=== PATIENT | male | born 1980 | race Caucasian/White ===

== ENCOUNTER 2017-08-24 21:27 | Emergency (ER) | payer SELFPAY ==
[2017-08-24] MEDS ORDERED: HYDROMORPHONE HCL INJ/PF 2 MG/ML AMPULE IM ONE (22:48)
[2017-08-24] MEDS ORDERED: SILVER SULFADIAZINE 1% CREAM 50 GM TP ONE (22:49)
[2017-08-24] MEDS ORDERED: HYDROMORPHONE HCL INJ/PF 2 MG/ML AMPULE ONE (22:51)
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
[2017-08-24] MEDS ORDERED: HYDROCODONE/ACETAMINOPHEN 5-325 MG 6 TAB/DSPK PO PRN (23:05)
[2017-08-24] MEDS ORDERED: SILVER SULFADIAZINE 1% CREAM 25 GM TP ONE (23:05)
[2017-08-24 23:23] VITALS: BP 107/67
== END 2017-08-24 23:26 | disposition home or self-care (01) ==
LOC: ER 21:27
DX: T23.261A Burn of second degree of back of right hand, initial encounter (principal); X10.2XXA Contact with fats and cooking oils, initial encounter; F17.200 Nicotine dependence, unspecified, uncomplicated
CPT/HCPCS: 99283; 96372; J1170; J3490

== ENCOUNTER 2017-12-05 20:42 | Emergency (ER) | payer SELFPAY ==
[2017-12-05 20:50] VITALS: BP 107/73
--- NOTE | 2017-12-05 22:49 | ER Document Report ---
HPI - HPI Patient complains to provider of: Back pain Pain Level: 4 Context: Patient is a 37-year-old male who presents emergency department complaining of left paralumbar pain with associated sciatica for the past 2 days. 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 He denies any specific injury. States that it started as a ache that is gotten more severe over the past day. Patient states he is taken Motrin and Lidoderm with improvement in his pain but it has not gone away. He denies any urinary/stool incontinence, saddle anesthesia. Denies any fevers or chills, neck stiffness. Patient does have a history of seizures, denies any recent seizure history. He has been compliant with his Depakote - CONSTITUTIONAL Constitutional: DENIES: Fever, Chills - EENT EENT: DENIES: Sore Throat, Ear Pain, Eye problems - NEURO Neurology: DENIES: Headache - CARDIOVASCULAR Cardiovascular: DENIES: Chest pain - RESPIRATORY Respiratory: DENIES: Trouble Breathing, Coughing - GASTROINTESTINAL Gastrointestinal: DENIES: Abdominal Pain, Black / Bloody Stools - URINARY Urinary: DENIES: Dysuria, Urgency, Frequency - MUSCULOSKELETAL Musculoskeletal: REPORTS: Extremity pain - l leg Past Medical History - Social History Smoking Status: Current Every Day Smoker Chew tobacco use (# tins/day): No Frequency of alcohol use: None Drug Abuse: None Family History: Arthritis, CAD, COPD, CVA, DM, Hyperlipidemia, Hypertension, Malignancy Patient has suicidal ideation: No Patient has homicidal ideation: No Neurological Medical History: Reports: Hx Seizures Renal/ Medical History: Reports: Hx Kidney Stones. Denies: Hx Peritoneal Dialysis Musculoskeltal Medical History: Reports Hx Arthritis Skin Medical History: Reports Hx MRSA Psychiatric Medical History: Denies: Hx Depression Past Surgical History: Reports: Hx Genitourinary Surgery - Vasectomy, Hx Orthopedic Surgery - Immunizations Hx Diphtheria, Pertussis, Tetanus Vaccination: Yes Vertical Provider Document - CONSTITUTIONAL Agree With Documented VS: Yes Notes: PHYSICAL EXAM GENERAL: Alert, interacts well. EXTREMITIES: Moves all 4 extremities spontaneously. No edema, radial and dorsalis pedis pulses 2/4 bilaterally. No cyanosis. Back: Left paralumbar muscle firmness and pain reproducible palpation. Negative Babinski sign, gait is stable and able to ambulate without assistance. Negative CVA. NEUROLOGICAL: Alert and oriented x4. Normal speech. PSYCH: Normal affect, normal mood. SKIN: Warm, dry, normal turgor. No rashes or lesions noted. - INFECTION CONTROL TRAVEL OUTSIDE OF THE [place] IN LAST 30 DAYS: No - RESPIRATORY O2 Sat by Pulse Oximetry: 97 Course - Re-evaluation Re-evalutation: 12/06/17 00:00 Patient is a 37-year-old male is hemodynamic stable, no acute distress and afebrile the patient presents with low back pain without signs of spinal cord compression, cauda equina syndrome, infection, aneurysm, or other serious etiology. The patient is neurologically intact. Given the extremely low risk of these diagnoses further testing and evaluation for these possibilities does not appear to be indicated at this time. The patient has been instructed to return if the symptoms worsen or change in any way. - Vital Signs Vital signs: Temp Pulse Resp BP Pulse Ox 98.4 F 73 18 107/73 97 12/05/17 20:49 12/05/17 20:49 12/05/17 20:49 12/05/17 20:49 12/05/17 20:49 Discharge - Discharge Clinical Impression: Back pain Qualifiers: Back pain location: low back pain Chronicity: acute Back pain laterality: left Sciatica presence: with sciatica Sciatica laterality: sciatica of left side Qualified Code(s): M54.42 - Lumbago with sciatica, left side Condition: Good Disposition: HOME, SELF-CARE Additional Instructions: LOW BACK PAIN: Three out of every four people will have an episode of disabling back pain during their lifetime. Most commonly the pain is due to straining of the muscles and ligaments in the low back. Usual treatment includes: (1) Rest on a firm surface. Avoid lying on your stomach. (2) Ice pack the painful area. After a few days, gentle heat may be used intermittently to relax the area, or ice packs can be continued. (3) Medication may be needed -- muscle relaxers and antiinflammatory medicines are commonly used. (4) As the back improves, exercises are prescribed to strengthen the back and abdominal muscles. Your doctor will advise you on the proper care for your back at each stage in your recovery. You may be better in a few days -- or healing may take several weeks. If new symptoms of a "herniated disc" (radiation of pain, numbness, or tingling down the back of the leg or weakness in the leg) occur, you should be re-examined. Further testing may be necessary. PAIN MEDICATION INJECTION: You have received an injection of a pain medication. You should experience significant pain relief within 45 minutes. If this injection was a narcotic -- it will impair your judgement, slow your reaction time and make you sleepy (as well as relieve your pain). Narcotics also can cause nausea. You should not drive, work with machinery, or perform any task requiring mental alertness until all effects of the medication are gone -- six to eight hours. Do not take any alcohol, or sedatives, and do not take any other medication without checking with your physician. MUSCLE RELAXERS: Muscle relaxing medications are usually prescribed for acute muscle spasm or injury to the neck and back. They are often combined with antiinflammatory pain medication for increased relief. You may stop the muscle relaxer when the pain and stiffness have improved. Start the medication again if spasms recur. Muscle relaxers may cause drowsiness, especially with the first dose. Do not operate machinery or drive while under the effects of the medication. Most muscle relaxers last up to 24 hours. Do not combine the medication with alcohol. ICE PACKS: Apply ice packs frequently against the painful area. Many different schedules are recommended, such as "20 minutes on, 20 minutes off" or "one hour ice, two hours rest." If you need to work, you may need to go longer between ice treatments. You should plan to have the area ice packed AT LEAST one fourth of the time. The ice should be applied over the wrap, tape, or splint, or over a layer of cloth -- not directly against the skin. Some ice bags have a built-in cloth and can be put directly on the skin. WARM PACKS: After approximately two days, apply gentle heat (such as a heating pad or hot water bottle) for about 20 to 30 minutes about every two hours -- at least four times daily. Warmth and elevation will help you make a more rapid recovery , and will ease the pain considerably. Do not use HOT heat, and never apply heat for longer than 30 minutes. The continuous heat can invisibly damage skin and muscles -- even when no burn is seen on the surface. Damaged muscles can make you MORE sore. FOLLOW-UP CARE: If you have been referred to a physician for follow-up care, call the physician s office for an appointment as you were instructed or within the next two days. If you experience worsening or a significant change in your symptoms, notify the physician immediately or return to the Emergency Department at any time for re-evaluation. Prescriptions: Cyclobenzaprine HCl [Flexeril 10 mg Tablet] 10 mg PO TIDP PRN #15 tab PRN Reason: Naproxen 375 mg PO BID #20 tablet Referrals: SILVIO CHISHOLM MD [[facility]] - Follow up in 1 week
[2017-12-05] MEDS ORDERED: KETOROLAC TROMETHAMINE INJ/PF 30 MG/1 ML SDV IM ONE (23:59)
[2017-12-05] MEDS ORDERED: CYCLOBENZAPRINE HCL 10 MG TABLET PO ONE (23:59)
== END 2017-12-06 00:24 | disposition home or self-care (01) ==
LOC: ER 20:42
DX: M54.42 Lumbago with sciatica, left side (principal); F17.200 Nicotine dependence, unspecified, uncomplicated
CPT/HCPCS: 99283; 96372; J1885

== ENCOUNTER 2018-06-05 10:24 | Emergency (ER) | payer SELFPAY ==
[2018-06-05 10:30] VITALS: BP 115/97
[2018-06-05] MEDS ORDERED: OXYCODONE-ACETAMINOPHEN 5-325 MG TABLET PO ONE (10:44)
[2018-06-05] MEDS ORDERED: IBUPROFEN 800 MG TABLET PO ONE (10:44)
--- NOTE | 2018-06-05 11:12 | ER Document Report ---
HPI - HPI Patient complains to provider of: Back pain Onset: Other - Years, worse since yesterday Onset/Duration: Worse Quality of pain: Sharp Pain Level: 5 Context: Patient presents complaining of a flareup of his chronic back pain. Patient states that he felt a pop in his back yesterday. Patient denies any new injury. Patient denies any fever. Patient denies any history of IV drug use. Patient does state the pain radiates into the left lower extremity down to the lower thigh area. Associated Symptoms: Other - Low back pain. denies: Headache Exacerbated by: Movement Relieved by: Denies Similar symptoms previously: Yes Recently seen / treated by doctor: No - ROS ROS below otherwise negative: Yes Systems Reviewed and Negative: Yes All other systems reviewed and negative - CONSTITUTIONAL Constitutional: DENIES: Fever, Chills - NEURO Neurology: DENIES: Headache, Weakness - GASTROINTESTINAL Gastrointestinal: DENIES: Nausea, Patient vomiting - URINARY Urinary: DENIES: Dysuria, Urgency, Frequency - MUSCULOSKELETAL Musculoskeletal: REPORTS: Back Pain - DERM Skin Color: Normal Skin Problems: None Past Medical History - General Information source: Patient - Social History Smoking Status: Current Every Day Smoker Chew tobacco use (# tins/day): No Smoking Education Provided: Yes Frequency of alcohol use: Rare Drug Abuse: Marijuana Occupation: Foodservice Family History: Arthritis, CAD, COPD, CVA, DM, Hyperlipidemia, Hypertension, Malignancy Patient has suicidal ideation: No Patient has homicidal ideation: No Neurological Medical History: Reports: Hx Seizures Renal/ Medical History: Reports: Hx Kidney Stones. Denies: Hx Peritoneal Dialysis Musculoskeletal Medical History: Reports Hx Arthritis, Reports Other - Back pain Skin Medical History: Reports Hx MRSA Psychiatric Medical History: Denies: Hx Depression Past Surgical History: Reports: Hx Genitourinary Surgery - Vasectomy, Hx Orthopedic Surgery - Immunizations Hx Diphtheria, Pertussis, Tetanus Vaccination: Yes Vertical Provider Document - CONSTITUTIONAL Agree With Documented VS: Yes Exam Limitations: No Limitations General Appearance: WD/WN, No Apparent Distress Notes: PHYSICAL EXAMINATION: GENERAL: Well-appearing, well-nourished and in no acute distress. HEAD: Atraumatic, normocephalic. EYES: sclera clear, anicteric, conjunctiva are normal. ENT: nares patent, Moist mucous membranes. NECK: Normal range of motion, supple no lymphadenopathy LUNGS: respirations unlabored HEART: Regular rate and rhythm without murmurs EXTREMITIES: Normal range of motion, no pitting or edema. No cyanosis. Gait normal, pt ambulates without difficulty BACK: lumbar midline tenderness, no deformities or step-offs. No CVA tenderness. NEUROLOGICAL: Cranial nerves grossly intact. Normal speech, normal gait. Patient with decreased sensation to left buttock and left lower leg. Normal rectal tone. 1+ Achilles and patellar reflexes bilaterally PSYCH: Normal mood, normal affect. SKIN: Warm, Dry, normal turgor, no rashes or lesions noted. - INFECTION CONTROL TRAVEL OUTSIDE OF THE [place] IN LAST 30 DAYS: No Course - Re-evaluation Re-evalutation: 06/05/18 11:12 Cat RN as standby during rectal examination 06/05/18 11:[address] Aceves regarding patient presentation and physical exam findings. Agrees with discharge plan of care at this time. The patient presents with low back pain without signs of spinal cord compression, cauda equina syndrome, infection, aneurysm, or other serious etiology. The patient is neurologically intact. Given the extremely risk of these diagnoses further testing and evaluation for these possibilities does not appear to be indicated at this time. Patient has been instructed to return if the symptoms worsen or change in any way. - Vital Signs Vital signs: Temp Pulse Resp BP Pulse Ox 98.4 F 100 18 115/97 H 97 06/05/18 10:29 06/05/18 10:29 06/05/18 10:29 06/05/18 10:29 06/05/18 10:29 - Diagnostic Test Radiology reviewed: Reports reviewed Discharge - Discharge Clinical Impression: Low back pain Qualifiers: Chronicity: unspecified Back pain laterality: left Sciatica presence: with sciatica Sciatica laterality: sciatica of left side Qualified Code(s): M54.42 - Lumbago with sciatica, left side Condition: Stable Disposition: HOME, SELF-CARE Instructions: Ice Packs ([facility]), Low Back Pain ([facility]), Muscle Relaxers ([facility]), Oral Narcotic Medication ([facility]), Sciatica ([facility]) Additional Instructions: Return immediately for any new or worsening symptoms Followup with your primary care provider, call tomorrow to make a followup appointment Prescriptions: Cyclobenzaprine HCl [Flexeril 10 Mg Tablet] 10 mg PO TID #15 tablet Oxycodone HCl/Acetaminophen [Percocet 5-325 mg Tablet] 1 tab PO ASDIR PRN #15 tablet PRN Reason: Forms: Smoking Cessation Education, Return to Work Referrals: [facility] [Provider Group] - Follow up as needed
--- NOTE | 2018-06-05 11:14 | RADIOLOGY REPORT (SQ) ---
EXAM DESCRIPTION: L SPINE WHOLE COMPLETED DATE/TIME: 06/05/2018 11:05 am REASON FOR STUDY: back pain COMPARISON: None. NUMBER OF VIEWS: Five views including obliques. TECHNIQUE: AP, lateral, oblique, and sacral radiographic images acquired of the lumbar spine. LIMITATIONS: None. FINDINGS: MINERALIZATION: Normal. SEGMENTATION: Normal. No transitional anatomy. ALIGNMENT: Normal. VERTEBRAE: Maintained height. No fracture or worrisome bone lesion. DISCS: Preserved height. No significant osteophytes or end plate irregularity. POSTERIOR ELEMENTS: Pedicles and facets are intact. No pars defect or posterior arch defects. HARDWARE: None in the spine. PARASPINAL SOFT TISSUES: Normal. PELVIS: Intact as visualized. No fractures or worrisome bone lesions. SI joints intact. OTHER: No other significant finding. IMPRESSION: NORMAL 5 VIEW LUMBAR SPINE. TECHNICAL DOCUMENTATION: JOB ID: [id number] [employer]- All Rights Reserved Reading location - IP/workstation name: [email or web address]
== END 2018-06-05 11:43 | disposition home or self-care (01) ==
LOC: ER 10:24
DX: M54.42 Lumbago with sciatica, left side (principal); G89.29 Other chronic pain; F17.200 Nicotine dependence, unspecified, uncomplicated; M19.90 Unspecified osteoarthritis, unspecified site; Z86.14 Personal history of Methicillin resistant Staphylococcus aureus infection
CPT/HCPCS: 72110; 99283

== ENCOUNTER 2018-11-07 23:25 | Emergency (ER) | payer SELFPAY ==
[2018-11-08 00:56] LABS: ABSOLUTE BASOPHILS # (AUTO) 0.1 10^3/uL (0.0-0.2); ABSOLUTE EOSINOPHILS # (AUTO) 0.1 10^3/uL (0.0-0.6); ABSOLUTE LYMPHOCYTES (AUTO) 3.8 10^3/uL (0.5-4.7); ABSOLUTE MONOCYTES (AUTO) 1.3 10^3/uL (0.1-1.4); ABSOLUTE NEUT (AUTO) 7.3 10^3/uL (1.7-8.2); BASOPHILS % (AUTO) 0.9 % (0-2); EOSINOPHILS % (AUTO) 1.1 % (0-6); HEMATOCRIT 42.2 % (37.9-51.0); HEMOGLOBIN 14.6 g/dL (13.5-17.0); LYMPHOCYTES % (AUTO) 29.9 % (13-45); MEAN CORPUSCULAR HEMOGLOBIN 31.7 pg (27.0-33.4); MEAN CORPUSCULAR HGB CONC 34.7 g/dL (32.0-36.0); MEAN CORPUSCULAR VOLUME 92 fl (80-97); MONOCYTES % (AUTO) 10.2 % (3-13); PLATELET COUNT 291 10^3/uL (150-450); RED BLOOD COUNT 4.61 10^6/uL (4.35-5.55); SEGMENTED NEUTROPHILS % (AUTO) 57.9 % (42-78); TOTAL CELLS COUNTED % (AUTO) 100 %; WHITE BLOOD COUNT 12.6 10^3/uL (4.0-10.5)
[2018-11-08 00:58] LABS: APPEARANCE,URINE CLEAR; BILIRUBIN,URINE NEGATIVE (NEGATIVE); COLOR,URINE STRAW; GLUCOSE, URINE NEGATIVE (NEGATIVE); KETONES,URINE NEGATIVE (NEGATIVE); LEUKOCYTE ESTERASE,URINE NEGATIVE (NEGATIVE); NITRITE,URINE NEGATIVE (NEGATIVE); PROTEIN,URINE NEGATIVE (NEGATIVE); URINE SPECIFIC GRAVITY 1.004; UROBILINOGEN,URINE NEGATIVE mg/dL (<2.0)
[2018-11-08 01:15] LABS: ALANINE AMINOTRANSFERASE 16 U/L (21-72); ALBUMIN 4.3 g/dL (3.5-5.0); ALKALINE PHOSPHATASE 41 U/L (38-126); ANION GAP 12 (5-19); ASPARTATE AMINO TRANSFERASE 17 U/L (17-59); BILIRUBIN,DIRECT 0.3 mg/dL (0.0-0.4); BILIRUBIN,TOTAL 0.4 mg/dL (0.2-1.3); BLOOD UREA NITROGEN 16 mg/dL (7-20); CALCIUM 10.2 mg/dL (8.4-10.2); CARBON DIOXIDE 26 mmol/L (22-30); CHLORIDE 105 mmol/L (98-107); GLUCOSE 91 mg/dL (75-110); LIPASE 71.4 U/L (23-300); POTASSIUM 4.1 mmol/L (3.6-5.0); SODIUM 142.5 mmol/L (137-145); TOTAL PROTEIN 7.5 g/dL (6.3-8.2)
[2018-11-08] MEDS ORDERED: MORPHINE SULFATE 10 MG/ML INJ IV PRN (01:21)
[2018-11-08] MEDS ORDERED: NORMAL SALINE 1000 ML 1,000 ML IV ONE (01:21)
[2018-11-08] MEDS ORDERED: KETOROLAC TROMETHAMINE INJ/PF 30 MG/1 ML SDV IV ONE ×2 (01:21→02:50)
--- NOTE | 2018-11-08 01:22 | ER Document Report ---
ED General - General Chief Complaint: Abdominal Pain Stated Complaint: ABDOMINAL PAIN Time Seen by Provider: 11/08/18 00:23 Notes: Patient is a 38-year-old male without chronic medical problems who presents with 2 days of progressively worsening lower abdominal pain. The patient reports that the pain started in the periumbilical region and has migrated to his right lower quadrant. States that the pain is a dull, throbbing, constant pain. Nothing seems to improve or worsen the pain. No history of similar symptoms in the past. He has associated nausea but no vomiting. No fever or constitutional symptoms. He has not seen his general physician regarding today' s concerns. Denies any testicular or penile pain. TRAVEL OUTSIDE OF THE [place] IN LAST 30 DAYS: No - Related Data Allergies/Adverse Reactions: No Known Allergies Allergy (Verified 06/05/18 10:30) Past Medical History - General Information source: Patient - Social History Smoking Status: Current Every Day Smoker Frequency of alcohol use: None Drug Abuse: None Lives with: Spouse/Significant other Family History: Arthritis, CAD, COPD, CVA, DM, Hyperlipidemia, Hypertension, Malignancy Neurological Medical History: Reports: Hx Seizures Renal/ Medical History: Reports: Hx Kidney Stones. Denies: Hx Peritoneal Dialysis Musculoskeletal Medical History: Reports Hx Arthritis Skin Medical History: Reports Hx MRSA Psychiatric Medical History: Denies: Hx Depression Past Surgical History: Reports: Hx Genitourinary Surgery - Vasectomy, Hx Orthopedic Surgery - Immunizations Hx Diphtheria, Pertussis, Tetanus Vaccination: Yes Review of Systems - Review of Systems Notes: Constitutional: Negative for fever. HENT: Negative for sore throat. Eyes: Negative for visual changes. Cardiovascular: Negative for chest pain. Respiratory: Negative for shortness of breath. Gastrointestinal: Positive for lower abdominal pain and nausea Genitourinary: Negative for dysuria. Musculoskeletal: Negative for back pain. Skin: Negative for rash. Neurological: Negative for headaches, weakness or numbness. 10 point ROS negative except as marked above and in HPI. Physical Exam - Vital signs Vitals: Temp Pulse Resp BP Pulse Ox 98.5 F 79 16 111/59 L 97 11/08/18 00:17 11/08/18 00:17 11/08/18 00:17 11/08/18 00:17 11/08/18 00:17 Interpretation: Normal Notes: PHYSICAL EXAMINATION: GENERAL: Appears to be in moderate discomfort but no acute distress HEAD: Atraumatic, normocephalic. EYES: Pupils equal round and reactive to light, extraocular movements intact, sclera anicteric, conjunctiva are normal. ENT: nares patent, oropharynx clear without exudates. Moist mucous membranes. NECK: Normal range of motion, supple without lymphadenopathy LUNGS: Breath sounds clear to auscultation bilaterally and equal. No wheezes rales or rhonchi. HEART: Regular rate and rhythm without murmurs ABDOMEN: Soft, significant focal tenderness to the right lower quadrant with associated guarding and rebound tenderness. : Positive cremasteric reflex bilaterally. No focal testicular discomfort or tenderness on palpation. EXTREMITIES: Normal range of motion, no pitting or edema. No cyanosis. NEUROLOGICAL: No focal neurological deficits. Moves all extremities spontaneously and on command. PSYCH: Normal mood, normal affect. SKIN: Warm, Dry, normal turgor, no rashes or lesions noted. Course - Re-evaluation Re-evalutation: 11/08/18 01:21 Patient presents with right lower quadrant abdominal pain that initially started in the umbilical region and has subsequently migrated to the right lower quadrant. He has had associated nausea and subjective fevers. On exam he has exquisite tenderness localized to the right lower quadrant with both guarding and rebound. Exam and history are extremely consistent with an acute appendicitis. Labs are notable for a leukocytosis. The exam unremarkable. Patient will go for CT scan of the abdomen pelvis to confirm the suspected diagnosis of acute appendicitis 11/08/18 02:15 CT does not identify an acute appendicitis although does appropriately visualize the appendix. On reexam the patient remains exquisitely tender to the right lower quadrant and appears to still be in significant pain. At this point given his exam and history I have contacted the on-call surgeon Dr. Richardson and requested him to to evaluate the patient. He states he will look at the CT scan and contact me. 11/08/18 02:48 Dr. Richardson has evaluated the patient, would like him to be observed in the emergency department for 6 additional hours and then the patient is to be reassessed by Dr. Forbes in the morning if he continues to have pain. Patient has been informed of this plan and does agree. I have reviewed care plan with Dr. Vicente who will monitor the patient and signed out to the a.m. physician. - Vital Signs Vital signs: Temp Pulse Resp BP Pulse Ox 98.5 F 79 16 111/59 L 97 11/08/18 00:17 11/08/18 00:17 11/08/18 00:17 11/08/18 00:17 11/08/18 00:17 - Laboratory Result Diagrams: 11/08/18 00:33 11/08/18 00:33 Laboratory results interpreted by me: 11/08/18 11/08/18 00:33 00:33 WBC 12.6 H ALT 16 L Discharge - Discharge Clinical Impression: Right lower quadrant abdominal pain
--- NOTE | 2018-11-08 02:07 | RADIOLOGY REPORT (SQ) ---
EXAM DESCRIPTION: CT ABDOMEN PELVIS WITH IV CONTRAST COMPLETED DATE/TME: 11/08/2018 01:20 CLINICAL HISTORY: 38 years, Male, rlq ab pain, eval appendicitis COMPARISON: None. TECHNIQUE: 373 Images stored on PACS. All CT scanners at this facility use dose modulation, iterative reconstruction, and/or weight based dosing when appropriate to reduce radiation dose to as low as reasonably achievable (ALARA). [facility]: Dose Right [facility]: CareDose [facility]: Dose Right [facility]: Teradose 4D [facility]: [employer] LIMITATIONS: None. FINDINGS: Limited evaluation of the lung bases is unremarkable. Osseous structures are grossly intact. The liver, spleen, adrenal glands, pancreas, kidneys are unremarkable. Normal appendix. No gross evidence for bowel obstruction. No free air. Urinary bladder is incompletely distended, limiting its evaluation. No free fluid. IMPRESSION: Negative for acute intra-abdominal/pelvic process TECHNICAL DOCUMENTATION: Quality ID # 436: Final reports with documentation of one or more dose reduction techniques (e.g., Automated exposure control, adjustment of the mA and/or kV according to patient size, use of iterative reconstruction technique) copyright 2011 [employer]- All Rights Reserved
--- NOTE | 2018-11-08 02:49 | PDOC CONSULTATION ---
Consultation Consult Date: 11/08/18 Attending physician:: MIHAI THORNTON Consult reason:: Abdominal pain abdominal pain History of Present Illness Patient complains of: Abdominal pain History of Present Illness: DEWIN OSWALD is a 38 year old male Presents emergency department via ground rescue complaining of a 2-1/2-day history of abdominal pain periumbilical that radiated to the right lower quadrant associated nausea no vomiting. Last bowel movement was earlier today, normal. He denies history of trauma previous episodes or contact with people who are sick. He was seen in the emergency department where he was found to have right lower quadrant tenderness and leukocytosis of 12,600. He had a CT scan of the abdomen and pelvis which was interpreted as normal. This was performed without oral contrast. Surgery was consulted. Patient states he is feeling a little better compared to when he first came in. Past Medical History Neurological Medical History: Reports: Seizures Musculoskeltal Medical History: Reports: Arthritis Psychiatric Medical History: Denies: Depression Past Surgical History Past Surgical History: Reports: Orthopedic Surgery Social History Information Source: Patient Smoking Status: Current Every Day Smoker Frequency of Alcohol Use: Rare Hx Recreational Drug Use: Yes - Marijuana Drugs: None Hx Prescription Drug Abuse: No Family History Family History: Arthritis, CAD, COPD, CVA, DM, Hyperlipidemia, Hypertension, Malignancy Parental Family History Reviewed: Yes Children Family History Reviewed: Yes Sibling(s) Family History Reviewed.: Yes Medication/Allergy Home Medications: Cyclobenzaprine HCl [Flexeril 10 Mg Tablet] 10 mg PO TID #15 tablet 06/05/18 Oxycodone HCl/Acetaminophen [Percocet 5-325 mg Tablet] 1 tab PO ASDIR PRN #15 tablet 06/05/18 Allergies/Adverse Reactions: No Known Allergies Allergy (Verified 06/05/18 10:30) Review of Systems Constitutional: PRESENT: as per HPI Eyes: ABSENT: visual disturbances Ears: ABSENT: hearing changes Cardiovascular: ABSENT: chest pain, dyspnea on exertion, edema, orthropnea, palpitations Respiratory: ABSENT: cough, hemoptysis Neurological: ABSENT: abnormal gait, abnormal speech, confusion, dizziness, focal weakness, syncope Psychiatric: ABSENT: anxiety, depression, homidical ideation, suicidal ideation Physical Exam Vital Signs: Temp Pulse Resp BP Pulse Ox 98.5 F 79 16 111/59 L 97 11/08/18 00:17 11/08/18 00:17 11/08/18 00:17 11/08/18 00:17 11/08/18 00:17 Intake & Output 11/06/18 11/07/18 11/08/18 06:59 06:59 06:59 Weight 69 kg General appearance: PRESENT: mild distress Head exam: PRESENT: normocephalic Eye exam: PRESENT: EOMI Teeth exam: PRESENT: other - Rotten teeth upper greater than lower Respiratory exam: PRESENT: rhonchi Cardiovascular exam: PRESENT: RRR Pulses: PRESENT: normal carotid pulses, normal radial pulses GI/Abdominal exam: PRESENT: other - Soft no distention no rigidity diffuse abdominal tenderness possibly more so on the right lower quadrant Rectal exam: PRESENT: deferred Extremities exam: PRESENT: full ROM Musculoskeletal exam: PRESENT: full ROM Neurological exam: PRESENT: alert, awake, oriented to person, oriented to time, oriented to situation Psychiatric exam: PRESENT: agitated Results Laboratory Results: 11/08/18 00:33 11/08/18 00:33 11/08/18 11/08/18 11/08/18 00:33 00:33 00:33 WBC 12.6 H RBC 4.61 Hgb 14.6 Hct 42.2 MCV 92 MCH 31.7 MCHC 34.7 RDW 13.0 Plt Count 291 Seg Neutrophils % 57.9 Lymphocytes % 29.9 Monocytes % 10.2 Eosinophils % 1.1 Basophils % 0.9 Absolute Neutrophils 7.3 Absolute Lymphocytes 3.8 Absolute Monocytes 1.3 Absolute Eosinophils 0.1 Absolute Basophils 0.1 Sodium 142.5 Potassium 4.1 Chloride 105 Carbon Dioxide 26 Anion Gap 12 BUN 16 Creatinine 0.97 Est GFR ( Amer) > 60 Est GFR (Non-Af Amer) > 60 Glucose 91 Calcium 10.2 Total Bilirubin 0.4 AST 17 ALT 16 L Alkaline Phosphatase 41 Total Protein 7.5 Albumin 4.3 Lipase 71.4 Urine Color STRAW Urine Appearance CLEAR Urine pH 7.0 Ur Specific [place] 1.004 Urine Protein NEGATIVE Urine Glucose (UA) NEGATIVE Urine Ketones NEGATIVE Urine Blood NEGATIVE Urine Nitrite NEGATIVE Ur Leukocyte Esterase NEGATIVE Urine WBC (Auto) 0 Urine RBC (Auto) 1 Impressions: Abdomen/Pelvis CT 11/08/18 01:20 IMPRESSION: Negative for acute intra-abdominal/pelvic process Surgeon's addendum: This is a limited study due to absence of oral contrast. No free air or fluid mass-effect etc. I cannot visualize the appendix. TECHNICAL DOCUMENTATION: Quality ID # 436: Final reports with documentation of one or more dose reduction techniques (e.g., Automated exposure control, adjustment of the mA and/or kV according to patient size, use of iterative reconstruction technique) copyright 2011 [employer]- All Rights Reserved Assessment & Plan - Diagnosis (1) Abdominal pain Is this a current diagnosis for this admission?: Yes Plan: Impression: Abdominal pain 2-1/2 days, mild leukocytosis; right lower quadrant to periumbilical abdominal tenderness, unremarkable CT scan; history and physical exam findings currently not consistent with acute appendicitis, possibly appendicitis in evolution Recommendations: 1. Observation; repeat examination in 4-6 hours; if pain worsens, reconsult general surgery-Dr. Pagan community health consultant November 08 2. Would withhold pain medication please (2) Recreational drug use Is this a current diagnosis for this admission?: Yes (3) Cigarette smoker two packs a day or less Is this a current diagnosis for this admission?: Yes
[2018-11-08] MEDS ORDERED: LIDOCAINE 5% (700 MG) TRANSDERMAL ADH..PATCH TP ONE (02:50)
[2018-11-08] MEDS ORDERED: NICOTINE 21 MG/24 HR PATCH.TD24 TD ONE (03:00)
[2018-11-08] MEDS ORDERED: ONDANSETRON HCL INJ/PF 4 MG/2 ML SDV IV ONE (04:54)
[2018-11-08] MEDS ORDERED: PROMETHAZINE HCL INJ 25 MG/1 ML VIAL IV ONE (07:30)
--- NOTE | 2018-11-08 10:22 | ER Document Report ---
ED GI/ - General Chief Complaint: Abdominal Pain Stated Complaint: ABDOMINAL PAIN Time Seen by Provider: 11/08/18 00:23 Notes: 38-year-old male to the emergency department complaining of right lower quadrant pain. Symptoms began yesterday. Continues to get worse. Patient was seen earlier by previous provider. Had a CT scan which was negative. Had a surgical consult which was inconclusive. Patient continues to have worsening right lower quadrant pain. A second surgeon, Dr. Forbes was asked to come see patient. He has recommended a repeat CT scan with oral contrast. Patient states the pain is actually getting worse not better. TRAVEL OUTSIDE OF THE [place] IN LAST 30 DAYS: No - HPI Patient complains to provider of: Abdominal pain - Related Data Allergies/Adverse Reactions: No Known Allergies Allergy (Verified 06/05/18 10:30) Past Medical History - General Information source: Patient - Social History Smoking Status: Current Every Day Smoker Chew tobacco use (# tins/day): No Frequency of alcohol use: None Drug Abuse: None Lives with: Spouse/Significant other Family History: Arthritis, CAD, COPD, CVA, DM, Hyperlipidemia, Hypertension, Malignancy Patient has suicidal ideation: No Patient has homicidal ideation: No Neurological Medical History: Reports: Hx Seizures Renal/ Medical History: Reports: Hx Kidney Stones. Denies: Hx Peritoneal Dialysis Musculoskeletal Medical History: Reports Hx Arthritis Skin Medical History: Reports Hx MRSA Psychiatric Medical History: Denies: Hx Depression Past Surgical History: Reports: Hx Genitourinary Surgery - Vasectomy, Hx Orthopedic Surgery - Immunizations Hx Diphtheria, Pertussis, Tetanus Vaccination: Yes Physical Exam - Vital signs Vitals: Temp Pulse Resp BP Pulse Ox 98.5 F 79 16 111/59 L 97 11/08/18 00:17 11/08/18 00:17 11/08/18 00:17 11/08/18 00:17 11/08/18 00:17 Interpretation: Normal - General General appearance: Appears well, Alert - HEENT Head: Normocephalic, Atraumatic Eyes: Normal Pupils: PERRL - Respiratory Respiratory status: No respiratory distress Chest status: Nontender Breath sounds: Normal Chest palpation: Normal - Cardiovascular Rhythm: Regular Heart sounds: Normal auscultation Murmur: No - Abdominal Inspection: Normal Distension: No distension Bowel sounds: Normal Tenderness: Tender, McBurney's point, Guarding, Rebound Organomegaly: No organomegaly - Back Back: Normal, Nontender - Extremities General upper extremity: Normal inspection, Nontender, Normal color, Normal ROM , Normal temperature General lower extremity: Normal inspection, Nontender, Normal color, Normal ROM , Normal temperature, Normal weight bearing. No: Norberto's sign - Neurological Neuro grossly intact: Yes Cognition: Normal Orientation: AAOx4 [place] Coma Scale Eye Opening: Spontaneous [place] Coma Scale Verbal: Oriented [place] Coma Scale Motor: Obeys Commands [place] Coma Scale Total: 15 Speech: Normal Motor strength normal: LUE, RUE, LLE, RLE Sensory: Normal - Psychological Associated symptoms: Normal affect, Normal mood - Skin Skin Temperature: Warm Skin Moisture: Dry Skin Color: Normal Course - Re-evaluation Re-evalutation: 11/08/18 11:11 Patient has an elevated WBC count. Definitely has concerning signs for appendicitis. Will follow recommendations of Dr. Forbes and repeat the CT scan at this time. 11/08/18 15:29 Abdomen/Pelvis CT 11/08/18 09:47 IMPRESSION: NO SIGNIFICANT OR ACUTE ABDOMINAL PROCESS. Laboratory 11/08/18 11/08/18 11/08/18 00:33 00:33 00:33 WBC 12.6 H RBC 4.61 Hgb 14.6 Hct 42.2 MCV 92 MCH 31.7 MCHC 34.7 RDW 13.0 Plt Count 291 Seg Neutrophils % 57.9 Lymphocytes % 29.9 Monocytes % 10.2 Eosinophils % 1.1 Basophils % 0.9 Absolute Neutrophils 7.3 Absolute Lymphocytes 3.8 Absolute Monocytes 1.3 Absolute Eosinophils 0.1 Absolute Basophils 0.1 Sodium 142.5 Potassium 4.1 Chloride 105 Carbon Dioxide 26 Anion Gap 12 BUN 16 Creatinine 0.97 Est GFR ( Amer) > 60 Est GFR (Non-Af Amer) > 60 Glucose 91 Calcium 10.2 Total Bilirubin 0.4 Direct Bilirubin 0.3 Neonat Total Bilirubin Not Reportable Neonat Direct Bilirubin Not Reportable Neonat Indirect Bili Not Reportable AST 17 ALT 16 L Alkaline Phosphatase 41 Total Protein 7.5 Albumin 4.3 Lipase 71.4 Urine Color STRAW Urine Appearance CLEAR Urine pH 7.0 Ur Specific [place] 1.004 Urine Protein NEGATIVE Urine Glucose (UA) NEGATIVE Urine Ketones NEGATIVE Urine Blood NEGATIVE Urine Nitrite NEGATIVE Urine Bilirubin NEGATIVE Urine Urobilinogen NEGATIVE Ur Leukocyte Esterase NEGATIVE Urine WBC (Auto) 0 Urine RBC (Auto) 1 Urine Mucus (Auto) RARE Urine Ascorbic Acid NEGATIVE 11/08/18 14:35 WBC 10.1 RBC 4.12 L Hgb 13.2 L Hct 38.2 MCV 93 MCH 32.0 MCHC 34.5 RDW 13.2 Plt Count 237 Seg Neutrophils % 62.1 Lymphocytes % 25.8 Monocytes % 9.6 Eosinophils % 1.7 Basophils % 0.8 Absolute Neutrophils 6.2 Absolute Lymphocytes 2.6 Absolute Monocytes 1.0 Absolute Eosinophils 0.2 Absolute Basophils 0.1 Sodium Potassium Chloride Carbon Dioxide Anion Gap BUN Creatinine Est GFR ( Amer) Est GFR (Non-Af Amer) Glucose Calcium Total Bilirubin Direct Bilirubin Neonat Total Bilirubin Neonat Direct Bilirubin Neonat Indirect Bili AST ALT Alkaline Phosphatase Total Protein Albumin Lipase Urine Color Urine Appearance Urine pH Ur Specific [place] Urine Protein Urine Glucose (UA) Urine Ketones Urine Blood Urine Nitrite Urine Bilirubin Urine Urobilinogen Ur Leukocyte Esterase Urine WBC (Auto) Urine RBC (Auto) Urine Mucus (Auto) Urine Ascorbic Acid Patient has a repeat CT scan with oral contrast at request of general surgeon performed and this was negative. A repeat CBC was performed at the request of general surgeon and this is gone down not up. Patient is afebrile. Feeling much better at this time. Strict warning signs will be given with regards to worsening abdominal pain. Patient will be discharged at this time in stable condition. - Vital Signs Vital signs: Temp Pulse Resp BP Pulse Ox 97.6 F 61 15 119/69 100 11/08/18 05:03 11/08/18 05:03 11/08/18 05:03 11/08/18 05:03 11/08/18 05:03 - Laboratory Result Diagrams: 11/08/18 14:35 11/08/18 00:33 Laboratory results interpreted by me: 11/08/18 11/08/18 11/08/18 00:33 00:33 14:35 WBC 12.6 H RBC 4.12 L Hgb 13.2 L ALT 16 L Discharge - Discharge Clinical Impression: Right lower quadrant abdominal pain Condition: Good Disposition: HOME, SELF-CARE Instructions: Observation for Appendicitis ([facility]), Pain Medication Injection ( [facility]), Toradol Injection ([facility]) Additional Instructions: In the event that pain is getting worse, fever, uncontrolled vomiting or any other concerns please return for repeat evaluation. Follow-up with surgery if this persists. Prescriptions: Ketorolac Tromethamine [Toradol 10 mg Tablet] 10 mg PO Q8H PRN 7 Days #21 tablet PRN Reason: Promethazine HCl [Phenergan 25 mg Tablet] 1 tab PO Q8H PRN 5 Days #15 tablet PRN Reason: Referrals: IRENE KASPER MD [ACTIVE STAFF] - Follow up in 3-5 days
[2018-11-08] MEDS ORDERED: MORPHINE SULFATE 10 MG/ML INJ IV ONE (11:11)
--- NOTE | 2018-11-08 13:33 | RADIOLOGY REPORT (SQ) ---
EXAM DESCRIPTION: CT ABD/PELVIS ORAL ONLY COMPLETED DATE/TIME: 11/08/2018 1:21 pm REASON FOR STUDY: abd pain, RLQ COMPARISON: IV contrasted study from earlier on same date. TECHNIQUE: CT scan of the abdomen and pelvis performed with oral contrast and no intravenous contras t. Images reviewed with lung, soft tissue, and bone windows. Reconstructed coronal and sagittal MPR i mages reviewed. All images stored on PACS. All CT scanners at this facility use dose modulation, iterative reconstruction, and/or weight based d osing when appropriate to reduce radiation dose to as low as reasonably achievable (ALARA). [facility]: Dose Right [facility]: CareDose [facility]: Dose Right [facility]: Teradose 4D [facility]: [employer] RADIATION DOSE: CT Rad equipment meets quality standard of care and radiation dose reduction techniq ues were employed. CTDIvol: 4.8 mGy. DLP: 277 mGy-cm.mGy. LIMITATIONS: None. FINDINGS: LOWER CHEST: Minimal dependent changes in the lower lobes. NON-CONTRASTED LIVER, SPLEEN, ADRENALS: Evaluation limited by lack of IV contrast. No identified sign ificant masses. PANCREAS: No masses. No peripancreatic inflammatory changes. GALLBLADDER: Contrast from earlier CT study. RIGHT KIDNEY AND URETER: No solid masses. No significant calcification. No hydronephrosis or hydroure ter. LEFT KIDNEY AND URETER: No solid masses. No significant calcification. No hydronephrosis or hydrouret er. AORTA AND RETROPERITONEUM: No aneurysm. No retroperitoneal masses or adenopathy. BOWEL AND PERITONEAL CAVITY: No obvious masses or inflammatory changes. No free fluid. APPENDIX: As previously noted, normal. PELVIS, BLADDER, AND ABDOMINAL WALL: No abnormal pelvic masses. No abdominal wall hernias. Bladder un remarkable. BONES: No significant findings. OTHER: No other significant finding. IMPRESSION: NO SIGNIFICANT OR ACUTE ABDOMINAL PROCESS. TECHNICAL DOCUMENTATION: JOB ID: [id number] Quality ID # [id number]: Final reports with documentation of one or more dose reduction techniques (e.g., Au tomated exposure control, adjustment of the mA and/or kV according to patient size, use of iterative reconstruction technique) 2010 [employer]- All Rights Reserved Reading location - IP/workstation name: [email or web address]
[2018-11-08 14:59] LABS: ABSOLUTE BASOPHILS # (AUTO) 0.1 10^3/uL (0.0-0.2); ABSOLUTE EOSINOPHILS # (AUTO) 0.2 10^3/uL (0.0-0.6); ABSOLUTE LYMPHOCYTES (AUTO) 2.6 10^3/uL (0.5-4.7); ABSOLUTE NEUT (AUTO) 6.2 10^3/uL (1.7-8.2); BASOPHILS % (AUTO) 0.8 % (0-2); EOSINOPHILS % (AUTO) 1.7 % (0-6); HEMATOCRIT 38.2 % (37.9-51.0); HEMOGLOBIN 13.2 g/dL (13.5-17.0); LYMPHOCYTES % (AUTO) 25.8 % (13-45); MEAN CORPUSCULAR HGB CONC 34.5 g/dL (32.0-36.0); MEAN CORPUSCULAR VOLUME 93 fl (80-97); MONOCYTES % (AUTO) 9.6 % (3-13); PLATELET COUNT 237 10^3/uL (150-450); RED BLOOD COUNT 4.12 10^6/uL (4.35-5.55); RED CELL DISTRIBUTION WIDTH 13.2 % (11.5-14.0); SEGMENTED NEUTROPHILS % (AUTO) 62.1 % (42-78); TOTAL CELLS COUNTED % (AUTO) 100 %; WHITE BLOOD COUNT 10.1 10^3/uL (4.0-10.5)
[2018-11-08 16:04] VITALS: BP 95/52
--- NOTE | 2018-11-08 17:08 | PDOC PROGRESS REPORT ---
Subjective Progress Note for:: 11/08/18 Subjective:: RLQ pains Reason For Visit: ABDOMINAL PAIN Physical Exam Vital Signs: Temp Pulse Resp BP Pulse Ox 98.3 F 52 L 16 95/52 L 100 11/08/18 16:03 11/08/18 16:03 11/08/18 16:03 11/08/18 16:03 11/08/18 05:03 Intake & Output 11/07/18 11/08/18 11/09/18 06:59 06:59 06:59 Intake Total 1000 Balance 1000 Weight 69 kg Exam: abdomen is soft with tenderness RLQ Results Laboratory Results: 11/08/18 14:35 11/08/18 00:33 11/08/18 11/08/18 11/08/18 00:33 00:33 00:33 WBC 12.6 H RBC 4.61 Hgb 14.6 Hct 42.2 MCV 92 MCH 31.7 MCHC 34.7 RDW 13.0 Plt Count 291 Seg Neutrophils % 57.9 Lymphocytes % 29.9 Monocytes % 10.2 Eosinophils % 1.1 Basophils % 0.9 Absolute Neutrophils 7.3 Absolute Lymphocytes 3.8 Absolute Monocytes 1.3 Absolute Eosinophils 0.1 Absolute Basophils 0.1 Sodium 142.5 Potassium 4.1 Chloride 105 Carbon Dioxide 26 Anion Gap 12 BUN 16 Creatinine 0.97 Est GFR ( Amer) > 60 Est GFR (Non-Af Amer) > 60 Glucose 91 Calcium 10.2 Total Bilirubin 0.4 AST 17 ALT 16 L Alkaline Phosphatase 41 Total Protein 7.5 Albumin 4.3 Lipase 71.4 Urine Color STRAW Urine Appearance CLEAR Urine pH 7.0 Ur Specific [place] 1.004 Urine Protein NEGATIVE Urine Glucose (UA) NEGATIVE Urine Ketones NEGATIVE Urine Blood NEGATIVE Urine Nitrite NEGATIVE Ur Leukocyte Esterase NEGATIVE Urine WBC (Auto) 0 Urine RBC (Auto) 1 11/08/18 14:35 WBC 10.1 RBC 4.12 L Hgb 13.2 L Hct 38.2 MCV 93 MCH 32.0 MCHC 34.5 RDW 13.2 Plt Count 237 Seg Neutrophils % 62.1 Lymphocytes % 25.8 Monocytes % 9.6 Eosinophils % 1.7 Basophils % 0.8 Absolute Neutrophils 6.2 Absolute Lymphocytes 2.6 Absolute Monocytes 1.0 Absolute Eosinophils 0.2 Absolute Basophils 0.1 Sodium Potassium Chloride Carbon Dioxide Anion Gap BUN Creatinine Est GFR ( Amer) Est GFR (Non-Af Amer) Glucose Calcium Total Bilirubin AST ALT Alkaline Phosphatase Total Protein Albumin Lipase Urine Color Urine Appearance Urine pH Ur Specific [place] Urine Protein Urine Glucose (UA) Urine Ketones Urine Blood Urine Nitrite Ur Leukocyte Esterase Urine WBC (Auto) Urine RBC (Auto) Impressions: Abdomen/Pelvis CT 11/08/18 09:47 IMPRESSION: NO SIGNIFICANT OR ACUTE ABDOMINAL PROCESS. Assessment & Plan - Time Time Spent with patient: 15-24 minutes - Plan Summary Plan Summary: Had repeat CT scan with po contrast which was essentially normal with visualization of a normal appendix. Repeat WBC was normal Told patient his pain is not from an acute appendicitis. He admots to having back pains and told him this may be from referred/radiculopathy pains frm the back. Told him he can come back to ED if develops fever/vomiting/diarrhea or worsaening pains. He understands.
== END 2018-11-08 15:45 | disposition home or self-care (01) ==
LOC: ER 23:25
DX: R10.30 Lower abdominal pain, unspecified (principal); R10.31 Right lower quadrant pain; R11.0 Nausea; F17.200 Nicotine dependence, unspecified, uncomplicated; Z87.442 Personal history of urinary calculi; Z86.14 Personal history of Methicillin resistant Staphylococcus aureus infection
CPT/HCPCS: 96376; 99284; 96361; 96374; 96375; 36415; 83690; 85025; 80053; 81001; 74176; 74177; J1885; J2270; J2550; J2405; J7030

== ENCOUNTER 2019-06-18 22:54 | Emergency (ER) | payer SELFPAY ==
--- NOTE | 2019-06-18 23:24 | ER Document Report ---
ED General - General Chief Complaint: Knee Pain Stated Complaint: RIGHT KNEE INJURY Time Seen by Provider: 06/18/19 23:17 Notes: Patient is a 38-year-old male who presents with complaint of right knee pain. Pain is mostly on the lateral and posterior aspect of the knee. He says it occurred when he slipped on a porch step and felt his knee twist. Says his knee did not dislocate or twist all the way. He caught himself. He says since then he has had the burning pain in his knee has been on having increasing pain with flexing the knee or bearing weight. Denies any weakness into the foot. No numbness into the foot. No other concerns at this time. TRAVEL OUTSIDE OF THE [place] IN LAST 30 DAYS: No - Related Data Allergies/Adverse Reactions: No Known Allergies Allergy (Verified 06/05/18 10:30) Past Medical History - Social History Smoking Status: Never Smoker Frequency of alcohol use: None Drug Abuse: None Family History: Arthritis, CAD, COPD, CVA, DM, Hyperlipidemia, Hypertension, Malignancy Neurological Medical History: Reports: Hx Seizures Renal/ Medical History: Reports: Hx Kidney Stones. Denies: Hx Peritoneal Dialysis Musculoskeletal Medical History: Reports Hx Arthritis Skin Medical History: Reports Hx MRSA Psychiatric Medical History: Denies: Hx Depression Past Surgical History: Reports: Hx Genitourinary Surgery - Vasectomy, Hx Orthopedic Surgery - Immunizations Hx Diphtheria, Pertussis, Tetanus Vaccination: Yes Review of Systems - Review of Systems Notes: My Normal Review Basic REVIEW OF SYSTEMS: CONSTITUTIONAL : Denies fever, chills, or sweats. Denies recent illness. MUSCULOSKELETAL: Right knee pain HEMATOLOGIC : Denies easy bruising or bleeding. NEUROLOGICAL: Denies sensory or motor loss. ALL OTHER SYSTEMS REVIEWED AND NEGATIVE. Physical Exam - Vital signs Vitals: Temp Pulse BP Pulse Ox 98.0 F 63 119/66 96 06/18/19 22:59 06/18/19 22:59 06/18/19 22:59 06/18/19 22:59 - Notes Notes: General Appearance: Well nourished, alert, cooperative, no acute distress,mild to moderate obvious discomfort. Vitals: reviewed, See vital signs table. Eyes: PERRL, EOMI, Conjuctiva clear Extremities: Patient is able to flex and extend his knee on his own. Is good strength in the right foot. Is good distal pulses in the foot good capillary refill. Good sensation in the right lower extremity. Does not have significant swelling to the knee but he has increasing pain with flexion of the knee. He has pain to palpation over the fibular head as well as over the posterior aspect of the knee. No pain to palpation over the patellar patella tendon. No pain to palpation of the medial aspect of the knee. No abnormal ligamentous laxity. Skin: warm, dry, appropriate color, no rash Neuro: speech clear, oriented x 3, normal affect, responds appropriately to questions. Course - Re-evaluation Re-evalutation: 06/19/19 00:27 Patient has what appears to be a knee injury. Suspect probably has meniscal tell based on the twisting type nature of his injury. He could potentially also have a lateral collateral ligamentous tear posterior cruciate ligament tear. I informed him that he needs to wear knee brace. Told to go to [facility] or [facility] and get a Velcro neoprene type knee brace. In the meantime we will place him in a Wili bandage for his knee and given crutches. Informed him to stay nonweightbearing is need to follows up with orthopedist this coming week. I provided the phone number to the orthopedic surgeon, Dr. Batista. Patient to return to ER if he has worsening pain, worsening swelling, or feels unwell. Patient is distal leg is completely neurovascular intact. He has good distal pulses. Good cap refill. Good distal sensation. He does not have significant swelling to the knee on exam. Dictation of this chart was performed using voice recognition software; therefore, there may be some unintended grammatical errors. 06/19/19 00:28 - Vital Signs Vital signs: Temp Pulse Resp BP Pulse Ox 98.0 F 63 119/66 96 06/18/19 22:59 06/18/19 22:59 06/18/19 22:59 06/18/19 22:59 Discharge - Discharge Clinical Impression: Knee injury Qualifiers: Encounter type: initial encounter Laterality: right Qualified Code(s): S89.91XA - Unspecified injury of right lower leg, initial encounter Condition: Good Disposition: HOME, SELF-CARE Additional Instructions: Based on your history and exam I suspect you likely have a ligamentous injury or menisci injury of your knee. Treatment is crutches and knee brace and follow up with the orthopedist. The orthopedist name is Dr. Batista. I have provided his phone number here in the discharge paperwork. Please call his office tomorrow morning to make follow-up appointment for this coming week. Please return to the ER if you have worsening pain, increasing swelling, or if you feel like you are worsening. Forms: Return to Work Referrals: HILL BATISTA MD [ACTIVE STAFF] - Follow up as needed
--- NOTE | 2019-06-18 23:47 | RADIOLOGY REPORT (SQ) ---
CLINICAL HISTORY: trauma COMPARISON: None. TECHNIQUE: XR KNEE 4 OR MORE VIEWS 06/18/2019 11:21 PM CDT FINDINGS: There is no fracture. Joint spaces are preserved. Soft tissues are unremarkable. IMPRESSION: No acute osseous findings.
[2019-06-19 00:39] VITALS: BP 118/65
== END 2019-06-19 00:39 | disposition home or self-care (01) ==
LOC: ER 22:54
DX: S89.91XA Unspecified injury of right lower leg, initial encounter (principal); M25.561 Pain in right knee; X50.1XXA Overexertion from prolonged static or awkward postures, initial encounter
CPT/HCPCS: 99283; 73564; L1830

== ENCOUNTER 2019-08-31 18:57 | Emergency (ER) | payer SELFPAY ==
[2019-08-31 19:14] VITALS: BP 129/65
[2019-08-31] MEDS ORDERED: HYDROCODONE/ACETAMINOPHEN 5-325 MG TABLET PO ONE (20:19)
--- NOTE | 2019-08-31 20:21 | ER Document Report ---
ED Medical Screen (RME) - General Stated Complaint: RIGHT LEG INJURY Time Seen by Provider: 08/31/19 20:16 Mode of Arrival: Ambulatory Information source: Patient Notes: Patient states that he was stepping up onto a porch and got cut by a jagged piece of glass. Patient states he removed about 4 inches of a piece of glass from his leg. Patient is concerned he may have retained foreign body. Patient complains of right lower leg pain. I have greeted and performed a rapid initial assessment of this patient. A comprehensive ED assessment and evaluation of the patient, analysis of test results and completion of the medical decision making process will be conducted by additional ED providers. TRAVEL OUTSIDE OF THE [place] IN LAST 30 DAYS: No - Related Data Allergies/Adverse Reactions: No Known Allergies Allergy (Verified 06/05/18 10:30) Past Medical History Neurological Medical History: Reports: Hx Seizures Renal/ Medical History: Reports: Hx Kidney Stones. Denies: Hx Peritoneal Dialysis Musculoskeltal Medical History: Reports Hx Arthritis Skin Medical History: Reports Hx MRSA Psychiatric Medical History: Denies: Hx Depression Past Surgical History: Reports: Hx Genitourinary Surgery - Vasectomy, Hx Orthopedic Surgery - Immunizations Hx Diphtheria, Pertussis, Tetanus Vaccination: Yes Physical Exam - Vital signs Vitals: Temp Pulse Resp BP Pulse Ox 98.6 F 72 20 129/65 H 98 08/31/19 19:12 08/31/19 19:12 08/31/19 19:12 08/31/19 19:12 08/31/19 19:12 - Skin Skin irregularity: Laceration - PW to RLE Course - Vital Signs Vital signs: Temp Pulse Resp BP Pulse Ox 98.6 F 72 20 129/65 H 98 08/31/19 19:12 08/31/19 19:12 08/31/19 19:12 08/31/19 19:12 08/31/19 19:12
--- NOTE | 2019-08-31 21:12 | RADIOLOGY REPORT (SQ) ---
EXAM DESCRIPTION: XR TIBIA FIBULA 2 VIEWS COMPLETED DATE/TME: 08/31/2019 20:19 CLINICAL HISTORY: 39 years, Male, laceration on broken mirror, rule out foreign body COMPARISON: None. NUMBER OF VIEWS: TECHNIQUE: LIMITATIONS: None. FINDINGS: 2 views of the left leg were obtained. No evidence of radiopaque foreign body within the soft tissues. No fracture. Mineralization of bone appears normal. IMPRESSION: No fracture or radiopaque foreign body. copyright 2010 [employer]- All Rights Reserved
[2019-08-31] MEDS ORDERED: LIDOCAINE 1% INJ-PF (10 MG/ML) 30 ML SDV INJ ONE (23:06)
--- NOTE | 2019-08-31 23:25 | ER Document Report ---
ED Extremity Problem, Lower - General Chief Complaint: Puncture Wound Stated Complaint: RIGHT LEG INJURY Time Seen by Provider: 08/31/19 20:16 Mode of Arrival: Ambulatory Information source: Patient Notes: 39-year-old male presented to ED for complaint of a laceration to the right lower leg. He states he thought it was 4 inches long and that the piece of glass went in 4 inches. These laceration was 1 cm long in the end of a cotton Q-tip would not fit inside. There was no foreign body according to the x-ray. Patient is alert and oriented respirations regular nonlabored speaking in full sentences. TRAVEL OUTSIDE OF THE [place] IN LAST 30 DAYS: No - HPI Patient complains to provider of: Injury, Pain Location: Leg Occurred: Just prior to arrival Onset/Duration: Sudden Quality of pain: Sharp, Throbbing Severity: Moderate Pain Level: 3 Context: Laceration Recent injury: Yes Associated symptoms: Painful ambulation Exacerbated by: Movement, Walking Relieved by: Nothing - Related Data Allergies/Adverse Reactions: No Known Allergies Allergy (Verified 06/05/18 10:30) Past Medical History - General Information source: Patient - Social History Smoking Status: Current Every Day Smoker Cigarette use (# per day): Yes - Pack per day Smoking Education Provided: Yes - 4 minutes Frequency of alcohol use: Rare Drug Abuse: Marijuana Occupation: farm machine operator Lives with: Spouse/Significant other Family History: Arthritis, CAD, COPD, CVA, DM, Hyperlipidemia, Hypertension, Malignancy Patient has suicidal ideation: No Patient has homicidal ideation: No - Past Medical History Cardiac Medical History: Reports: None Pulmonary Medical History: Reports: None EENT Medical History: Reports: None Neurological Medical History: Reports: Hx Seizures Endocrine Medical History: Reports: None Renal/ Medical History: Reports: Hx Kidney Stones Malignancy Medical History: Reports None GI Medical History: Reports: None Musculoskeletal Medical History: Reports Hx Arthritis Skin Medical History: Reports Hx MRSA Psychiatric Medical History: Reports: None Traumatic Medical History: Reports: None Infectious Medical History: Reports: None Past Surgical History: Reports: Hx Genitourinary Surgery - Vasectomy - Immunizations Hx Diphtheria, Pertussis, Tetanus Vaccination: Yes - 2016 Review of Systems - Review of Systems Constitutional: No symptoms reported EENT: No symptoms reported Cardiovascular: No symptoms reported Respiratory: No symptoms reported Gastrointestinal: No symptoms reported Genitourinary: No symptoms reported Male Genitourinary: No symptoms reported Musculoskeletal: No symptoms reported Skin: Other - Laceration to the right leg Hematologic/Lymphatic: No symptoms reported Neurological/Psychological: No symptoms reported -: Yes All other systems reviewed and negative Physical Exam - Vital signs Vitals: Temp Pulse Resp BP Pulse Ox 98.6 F 72 20 129/65 H 98 08/31/19 19:12 08/31/19 19:12 08/31/19 19:12 08/31/19 19:12 08/31/19 19:12 Interpretation: Normal - General General appearance: Appears well, Alert - HEENT Head: Normocephalic, Atraumatic Eyes: Normal Pupils: PERRL - Respiratory Respiratory status: No respiratory distress Chest status: Nontender Breath sounds: Normal Chest palpation: Normal - Cardiovascular Rhythm: Regular Heart sounds: Normal auscultation Murmur: No - Abdominal Inspection: Normal Distension: No distension Bowel sounds: Normal Tenderness: Nontender Organomegaly: No organomegaly - Back Back: Normal, Nontender - Extremities General upper extremity: Normal inspection, Nontender, Normal color, Normal ROM, Normal temperature General lower extremity: Normal color, Normal ROM, Normal temperature, Normal weight bearing. No: Norberto's sign Calf: Tender, Laceration - 1 cm laceration to the lateral right leg - Neurological Neuro grossly intact: Yes Cognition: Normal Orientation: AAOx4 [place] Coma Scale Eye Opening: Spontaneous [place] Coma Scale Verbal: Oriented [place] Coma Scale Motor: Obeys Commands [place] Coma Scale Total: 15 Speech: Normal Motor strength normal: LUE, RUE, LLE, RLE Sensory: Normal - Psychological Associated symptoms: Normal affect, Normal mood - Skin Skin Temperature: Warm Skin Moisture: Dry Skin Color: Normal Skin irregularity: Laceration - 1 cm laceration Location of irregularity: Extremities - Lateral right lower leg Course - Re-evaluation Re-evalutation: 09/01/19 03:05 No foreign body in the laceration according to the radiological report. Patient was treated for his laceration with sutures after cleaning well and irrigating well. - Vital Signs Vital signs: Temp Pulse Resp BP Pulse Ox 98.6 F 72 20 129/65 H 98 08/31/19 19:12 08/31/19 19:12 08/31/19 19:12 08/31/19 19:12 08/31/19 19:12 - Diagnostic Test Radiology reviewed: Image reviewed, Reports reviewed Procedures - Laceration/Wound Repair Right Lower Leg Time completed: 23:28 Wound length (cm): 1 Wound's Depth, Shape: Linear Laceration pre-procedure: Sterile PPE donned, Sterile drapes applied, Shur-Clens applied Anesthetic type: 1% Lidocaine Volume Anesthetic (mLs): 5 Wound explored: Clean, No foreign body removed Irrigated w/ Saline (mLs): 500 Wound Debrided: Minimal Wound Repaired With: Sutures Suture Size/Type: 4:0 Number of Sutures: 2 Layer Closure?: No Post-procedure wound care: Sterile dressing applied Post-procedure NV exam normal: Yes Complications: No Discharge - Discharge Clinical Impression: Laceration of right lower leg Qualifiers: Encounter type: initial encounter Qualified Code(s): S81.811A - Laceration without foreign body, right lower leg, initial encounter Condition: Stable Disposition: HOME, SELF-CARE Instructions: Family Physicians / Practices Additional Instructions: LACERATION CARE: Your laceration has been sutured to keep the skin edges aligned during healing. The time of suture removal depends on the nature and location of your cut. Please follow the care instructions the doctor has outlined for you and return for further care, according to the schedule you've been given. Keep the wound and dressing clean. Unless you were told otherwise, you may shower daily, blotting the wound dry with a clean, unused towel. At other times, If the dressing gets wet or blood soaked, remove it and blot the wound dry, then reapply a new dressing. Unless you were instructed otherwise, dressings should be changed at least daily. If any signs of infection occur (swelling, redness, drainage, increasing tenderness, red streaks, tender lumps in the armpit or groin above the laceration, or fever), see the doctor immediately. SOAP CLEANSING: Gently wash the wound daily using a mild soap (like Ivory, Phisoderm, Neutrogena). Use warm water, rubbing gently until all debris, ooze, and crusting have been washed from the wound. Allow to dry briefly (about 10 minutes) after cleaning. Repeat this cleansing at least three times a day for the first two days and then once or twice a day. ANTIBIOTIC OINTMENT PROTECTION: Your wounds are such that dressing them is not practical or optional. After cleansing, you should apply a thin coating of antibiotic ointment (Bacitracin, not Neosporin) to the wounds at least three times daily. This lessens infection risk, and may decrease the amount of scarring. Use a q-tip or dull butter knife, not your finger, to apply this ointment. Any debris or ooze which builds up in the ointment should be gently rubbed off with a sterile gauze pad. Harder crusting may need to be gently scrubbed off with a clean wash cloth with soap and warm water, perhaps applying a warm, wet wash cloth to the wound for ten minutes first. Development of redness, severe itching, or blistering may mean allergy to the ointment. See the doctor. FOLLOW-UP CARE: Please return in __3___ days for an infection check and dressing change. Your sutures should be removed in __10___ days. To facilitate a timely removal of your sutures, you may return to the Emergency [facility] at [facility]. You do not need to call for an appointment, but the best time to come in for suture removal is early in the morning. If you have been referred to another physician for follow-up care, call that physicians office for an appointment as you were instructed. If you experience a significant change in your laceration, or if you are concerned there may be an infection (swelling, redness, drainage, increasing tenderness, red streaks, tender lumps in the armpit or groin above the laceration, or fever), return to the Emergency Department immediately re-evaluation. Forms: Elevated Blood Pressure, Smoking Cessation Education
== END 2019-08-31 23:31 | disposition home or self-care (01) ==
LOC: ER 18:57
PROC: 0HQKXZZ Repair Right Lower Leg Skin, External Approach (ICD-10-PCS; principal; 2019-08-31)
DX: S81.811A Laceration without foreign body, right lower leg, initial encounter (principal); W25.XXXA Contact with sharp glass, initial encounter; F17.210 Nicotine dependence, cigarettes, uncomplicated
CPT/HCPCS: 73590; 12001; J3490; 99283